=== PATIENT | female | born 1985 | race Caucasian/White ===

== ENCOUNTER 2016-06-05 23:44 | Emergency (ER) | payer SELFPAY ==
[2016-06-06 01:02] VITALS: BP 115/65; PULSE 84; RESP 16; TEMP 98; O2SAT 100
== END 2016-06-06 02:20 | disposition left against medical advice (07) ==
LOC: H.ER 23:44
DX: Z02.89 Encounter for other administrative examinations (principal)

== ENCOUNTER 2016-12-13 22:09 | Emergency (ER) | payer SELFPAY ==
[2016-12-13 22:15] VITALS: BP 125/89; PULSE 82; RESP 18; TEMP 98; O2SAT 100
--- NOTE | 2016-12-13 22:25 | ED PDOC ---
HPI: Abdomen Time Seen by Provider: 12/13/16 22:16 Chief Complaint (Nursing): Abdominal Pain Chief Complaint (Provider): Abdominal Pain History Per: Patient Additional Complaint(s): 31 yo femerick,e no PMH, presents to ED at 16 w , , with complaints of lower back pain x1 day. Pt is 16 weeks , G2, P1. Denies abdominal pain, denies bleeding. Denies taking medication. Past Medical History Reviewed: Nursing Documentation, Vital Signs Vital Signs: Last Vital Signs Temp 98 F 12/13/16 22:11 Pulse 82 12/13/16 22:11 Resp 18 12/13/16 22:11 BP 125/89 12/13/16 22:11 Pulse Ox 100 12/13/16 22:25 - Medical History PMH: No Chronic Diseases - Surgical History Surgical History: No Surg Hx - Family History Family History: States: No Known Family Hx - Living Arrangements Living Arrangements: With Family - Social History Current smoker - smoking cessation education provided: No Alcohol: None Drugs: Denies - Home Medications Home Medications: Ambulatory Orders Medication Instructions Recorded Nitrofurantoin Macrocrystals 100 mg PO BID #10 cap 12/14/16 [Macrobid] - Allergies Allergies/Adverse Reactions: Allergies Allergy/AdvReac Type Severity Reaction Status Date / Time No Known Allergies Allergy Verified 06/01/15 02:20 Review of Systems ROS Statement: Except As Marked, All Systems Reviewed And Found Negative Constitutional: Positive for: Fever Gastrointestinal: Positive for: Abdominal Pain Genitourinary Female: Positive for: Frequency Physical Exam - Reviewed Nursing Documentation Reviewed: Yes Vital Signs Reviewed: Yes - Physical Exam Appears: Positive for: Well, Non-toxic, No Acute Distress Head Exam: Positive for: ATRAUMATIC, NORMAL INSPECTION, NORMOCEPHALIC Skin: Positive for: Normal Color, Warm, DRY Eye Exam: Positive for: EOMI, Normal appearance, PERRL ENT: Positive for: Normal ENT Inspection Neck: Positive for: Normal, Painless ROM Cardiovascular/Chest: Positive for: Regular Rate, Rhythm Respiratory: Positive for: CNT, Normal Breath Sounds Gastrointestinal/Abdominal: Positive for: Bowel Sounds, Soft, Tenderness (mild suprapubic). Negative for: Guarding Back: Positive for: Normal Inspection Extremity: Positive for: Normal ROM Neurologic/Psych: Positive for: Alert, Oriented - Laboratory Results Result Diagrams: 12/13/16 22:38 - ECG O2 Sat by Pulse Oximetry: 100 Medical Decision Making Medical Decision Making: Dip (+) leuks FINDINGS: Fetus: Single live intrauterine gestation. Heart rate: heart rate of 156 beats per minute. Presentation: Cephalic. Placenta: Posterior fundal. No placenta previa or abruption. Amniotic fluid: Normal. Anatomy: No gross anomaly is appreciated. BIOMETRICS Gestational age by US: Estimated gestational age of 16 weeks 6 days by measurements. EFW: Estimated weight of 166 g. BPD: 3.7 cm, correlating with 17 weeks 1 day. HC: 13.0 cm, correlating with 16 weeks 5 days. AC: 10.5 cm, correlating with 16 weeks 3 days. FL: 2.3 cm, correlating with 17 weeks 0 days. MATERNAL: Uterus: Unremarkable. No myometrial mass. Cervix: No cervical dilatation or effacement. Adnexa: Ovaries not visualized. No adnexal masses. Free fluid: No significant free fluid. IMPRESSION: 1. Single live intrauterine gestation. Disposition - Clinical Impression Clinical Impression: Abdominal pain during , UTI (urinary tract infection) during - Patient ED Disposition Is Patient to be Admitted: No - Disposition Disposition: Routine/Home Disposition Time: 00:35 Condition: STABLE Prescriptions: Nitrofurantoin Macrocrystals [Macrobid] 100 mg PO BID #10 cap Instructions: Urinary Tract Infection in Women (ED) Forms: [facility] [facility] ([place]i)
[2016-12-13 22:43] LABS: BASO % 0.5 % (0.0-2.0); EOS # 0.1 K/uL (0.0-0.7); HEMATOCRIT 33.8 % (34.0-47.0); LYMPH # 2.8 K/uL (1.0-4.3); LYMPH % 28.4 % (20.0-40.0); MEAN CELL VOLUME 84.9 fl (81.0-99.0); MEAN CORPUSCULAR HEMOGLOBIN 29.2 pg (27.0-31.0); MEAN CORPUSCULAR HGB CONC 34.4 g/dL (33.0-37.0); MEAN PLATELET VOLUME 7.3 fl (7.2-11.7); MONO # 0.5 K/uL (0.0-0.8); MONO % 5.2 % (0.0-10.0); NEUT # 6.5 K/uL (1.8-7.0); NEUT % 64.9 % (50.0-75.0); NRBC % 0.2 % (0.0-0.0); RED CELL DISTRIBUTION WIDTH 15.6 % (11.5-14.5); WHITE BLOOD COUNT 9.9 K/uL (4.8-10.8)
--- NOTE | 2016-12-13 23:52 | US ---
EXAM: US After First Trimester, Transabdominal CLINICAL HISTORY: 31 years old, female; Pain; Other: Abd pain; Gestational age or lmp: Unknown; TECHNIQUE: Real-time transabdominal obstetrical ultrasound of the maternal pelvis and a second or third trimester with image documentation. COMPARISON: No relevant prior studies available. FINDINGS: Fetus: Single live intrauterine gestation. Heart rate: heart rate of 156 beats per minute. Presentation: Cephalic. Placenta: Posterior fundal. No placenta previa or abruption. Amniotic fluid: Normal. Anatomy: No gross anomaly is appreciated. BIOMETRICS Gestational age by US: Estimated gestational age of 16 weeks 6 days by measurements. EFW: Estimated weight of 166 g. BPD: 3.7 cm, correlating with 17 weeks 1 day. HC: 13.0 cm, correlating with 16 weeks 5 days. AC: 10.5 cm, correlating with 16 weeks 3 days. FL: 2.3 cm, correlating with 17 weeks 0 days. MATERNAL: Uterus: Unremarkable. No myometrial mass. Cervix: No cervical dilatation or effacement. Adnexa: Ovaries not visualized. No adnexal masses. Free fluid: No significant free fluid. IMPRESSION: 1. Single live intrauterine gestation.
== END 2016-12-14 00:45 | disposition home or self-care (01) ==
LOC: H.ER 22:09
DX: O23.40 Unspecified infection of urinary tract in pregnancy, unspecified trimester (principal)

== ENCOUNTER 2017-03-09 19:24 | Inpatient (IN) | payer MEDICAID ==
[2017-03-09 21:40] VITALS: BMI 29.6
[2017-03-09 22:37] LABS: HEMATOCRIT 34.4 % (34.0-47.0); MEAN CELL VOLUME 84.7 fl (81.0-99.0); MEAN CORPUSCULAR HEMOGLOBIN 27.9 pg (27.0-31.0); MEAN CORPUSCULAR HGB CONC 32.9 g/dL (33.0-37.0); RED CELL DISTRIBUTION WIDTH 14.1 % (11.5-14.5); WHITE BLOOD COUNT 11.4 K/uL (4.8-10.8)
[2017-03-09 22:46] LABS: ALKALINE PHOSPHATASE 131 U/L (38-126); ALT/SGPT 32 U/L (9-52); AST/SGOT 22 U/L (14-36); BILIRUBIN,TOTAL 0.4 mg/dl (0.2-1.3); BLOOD UREA NITROGEN 6 mg/dl (7-17); CARBON DIOXIDE 20 mmol/L (22-30); CHLORIDE 105 mmol/L (98-107); GFR AFRICAN-AMERICAN > 60; GLUCOSE,RANDOM 88 mg/dL (65-105); POTASSIUM 3.4 MMOL/L (3.6-5.0); SODIUM 133 mmol/l (132-148); TOTAL PROTEIN 7.3 G/DL (6.3-8.2)
[2017-03-09 23:14] LABS: RBC URINE 2 /hpf (0-3); URINE BACTERIA RARE (<OCC); URINE BILIRUBIN NEGATIVE (NEGATIVE); URINE BLOOD NEGATIVE (NEGATIVE); URINE COLOR YELLOW (YELLOW); URINE GLUCOSE (UA) NEG (Normal); URINE KETONE NEGATIVE (NEGATIVE); URINE LEUKOCYTE ESTERASE NEG Leu/uL (Negative); URINE PROTEIN 30 mg/dL (NEGATIVE); WBC URINE 2 /hpf (0-5)
[2017-03-10] MEDS ORDERED: Betamethasone Soluspan 30 mg/5mL Inj Susp IM ONE ×2 (01:29→15:14)
[2017-03-10] MEDS: Lactated Ringer's 1,000 ML IV SCH ×5 (03:00→15:51)
--- NOTE | 2017-03-10 08:40 | OBADHP ---
Datetime: 03/10/2017 08:33 FHR - Baseline A Provider: 120's Contraction Comments Provider: Quiet Vital Signs Provider: Reviewed NICHD Variability Prov Fetus A: Moderate 6-25bpm NICHD Accel Fetus A IP Provider: [id number] FHR Category Provider Fetus A: Category II NICHD Decel Fetus A IP Provider: None Datetime: 03/10/2017 00:50 Pelvic Type - PN: Adequate Extremities - PN: Normal Abdomen - PN: Normal Lungs - PN: Normal Heart - PN: Normal Neurologic - PN: Normal HEENT - PN: Normal General - PN: Normal Membranes, Provider: Intact IP Hx Assessment: The History has been Reviewed and is Current IP Chief Complaint: Suspected ruptured membranes Dilatation, Provider: closed DTRs - PN: Normal EGA AdmitDate IP: 29.3 IP Adm Impression: , intrauterine IP Admit Plan: Admit to unit; Observation/Evaluation Datetime: 03/09/2017 21:43 Admit Comment, IP Provider: 32 y/o F at 29.2 weeks GA, CLINT 05/23/17, c/o severe abdominal pain that began yesterday. Pain located in epigastric area, constant, sharp, 10/10 intensity and associat ed with nausea. Pt also reports intermittent uterine CTX since yesterday that occurs every 5-10 minut es and incresing in intensity. No VB or LOF, FM have increased. After interviewing, pt had a vomiting episode, non-bloody non-bilious. Pt denies fever, CP, SOB, diarrhea, acid reflux, urinary complaints or rash. NKDA PNC Clinic: [facility] PNLabs: blood group O pos, antibody screen neg, RPR neg, Rubella immun, HBsAg neg, HIV neg. OBHx: , 1x 15 years ago. PMHx: denied PSHx: appendectomy and cholecystectomy 7-8 years ago. FHx: NC SHx: denied tobacco, alcohol or recreational drugs. A/P: 32 y/o F with IUP at 29.2 weeks GA with CTXs, vomiting and abdominal pain, need to rule out p re-term labor. -CBC, CMP and urinalysis ordered -IV hydration. -Will re-evaluate and may decide to order fibronectin. -Observe and FHT monitoring. Case discussed with Dr Dempsey, OB chief construction inspector. Marlo PGY-1 OB attending addendum: Patient seen and examined by me with Dr. Sellers. Agree with above assess ment and plan. Thyroid - PN: Normal (Annotations: Data stored by CPN on behalf of user) Comments, ACOG Physical Exam: Speculum exam: cervix closed, neg pooling, no blood traces. Pelvic exam; cervix closed. Gestation - Est Wks by US: 29.2 Pool Provider: Negative Effacement, Provider: 0 Station, Provider: -4
--- NOTE | 2017-03-10 08:44 | OBPN ---
Datetime: 03/10/2017 08:33 IP Progress Impression Other: Abdominal pain at 29 wks IP Progress Plan: Continue present management Contraction Comments Provider: Quiet FHR - Baseline A Provider: 120's IP Progress Note Comment: 32 yo at 29+3 wks admitted w/ abdominal pain, + FFN. Pt reports that she has no pain today, denies ctxns, LOF, VB and reports FM. Pt received BMZ at 3 am. Pt to have cervical length this am. Vital Signs Provider: Reviewed NICHD Accel Fetus A IP Provider: [id number] FHR Category Provider Fetus A: Category II NICHD Variability Prov Fetus A: Moderate 6-25bpm NICHD Decel Fetus A IP Provider: None Datetime: 03/10/2017 00:50 Membranes, Provider: Intact Dilatation, Provider: closed Datetime: 03/09/2017 21:43 Pool Provider: Negative Gestation - Est Wks by US: 29.2 Effacement, Provider: 0 Station, Provider: -4
--- NOTE | 2017-03-10 11:51 | US ---
PROCEDURE: Third trimester ultrasound HISTORY: uterine ctx at 29.2 weeks GA, cervical length COMPARISON: 12/13/2016. TECHNIQUE: Standard protocol for this study/examination. FINDINGS: Breech presentation. Fundal Placenta. No evidence of abruption or previa Gestational age derived from LMP 29 weeks 2 days. CLINT 05/24/2017 Gestational age derived from the following biometric parameters 30 weeks 2 days CLINT 05/17/2017 . Biparietal diameter 7.5 cm Head [id number] cm Abdominal circumference 25.1 cm Femur length 6.0 cm Estimated weight 1513 g Calculated cardiac rate 129 beats per min. Closed cervix measuring 5.41 cm IMPRESSION: Thirty weeks 2 days live intrauterine gestation. Gestational concordance documented. Adequate interval progression compared to the prior study.
--- NOTE | 2017-03-10 15:24 | OBPN ---
Datetime: 03/10/2017 15:17 IP Progress Impression Other: abdominal pain at 29+ wks IP Progress Plan: Discharge FHR - Baseline A Provider: 120's IP Progress Note Comment: 32 yo at 29+3 wks admitted for observation w/ abdominal pain s/p B etamethasone at 3 am Cervix closed and measures 5.41 cm on u/s FHT reactive Pt to receive next BMZ dose now Pt discharged to home, has a f/u appoint w/ clinic on 03/19/2017 Pt given PTL precautions NICHD Accel Fetus A IP Provider: [id number] FHR Category Provider Fetus A: Category I NICHD Variability Prov Fetus A: Moderate 6-25bpm NICHD Decel Fetus A IP Provider: None
--- NOTE | 2017-03-10 15:24 | OBDCSUM ---
Datetime: 03/10/2017 15:21 Discharged to, Provider: Home Follow up at, Provider: Clinic Disch Instr Activity: Normal activity Disch Instr Diet: Regular Discharge Instructions, Provider: Routine instructions given Discharge Time: 03/10/2017 15:22 Follow up in weeks, Provider: 03/19/2017 Contraception discussed, Prov: No Discharge Diagnosis Prov Other: Abdominal pain at 29+ wks
--- NOTE | 2017-03-10 15:43 | OBPN ---
Datetime: 03/10/2017 15:17 IP Progress Note Comment: 32 yo at 29+3 wks admitted for observation w/ abdominal pain w/ po stive FFN s/p Betamethasone at 3 am Cervix closed and measures 5.41 cm on u/s FHT reactive Pt to receive next BMZ dose now Pt discharged to home, has a f/u appoint w/ clinic on 03/19/2017 Pt given PTL precautions
[2017-03-11 03:55] VITALS: BP 113/66; PULSE 88; RESP 18; TEMP 98.3; O2SAT 100
== END 2017-03-10 16:00 | disposition home or self-care (01) | DRG 379 ==
LOC: H.EROB2 19:24 → H.L&D 03-10 01:30
PROVIDERS: ADMIT Obstetrics & Gynecology; ATTEND Obstetrics & Gynecology
PROC: 4A1HXCZ Monitoring of Products of Conception, Cardiac Rate, External Approach (ICD-10-PCS; principal; 2017-03-10)
DX: O60.03 Preterm labor without delivery, third trimester (principal); Z3A.29 29 weeks gestation of pregnancy